=== PATIENT | female | born 1960 | race Caucasian/White ===

== ENCOUNTER → 2017-01-23 | Outpatient (CLI) | payer MEDICARE, MEDICAID ==
--- NOTE | 2017-01-23 13:50 | RADIOLOGY REPORT (SQ) ---
EXAM DESCRIPTION: MRI HEAD WITHOUT COMPLETED DATE/TIME: 01/23/2017 11:20 am REASON FOR STUDY: MIGRAINE G43.909 MIGRAINE, UNSP, NOT INTRACTABLE, WITHOUT STATUS MIGR COMPARISON: None. TECHNIQUE: Multiplanar imaging includes non-contrasted T1, T2, FLAIR, and diffusion with ADC map seq uences. Images stored on PACS. LIMITATIONS: None. FINDINGS: ANATOMY: No developmental anomalies. Normal vascular flow voids. Pituitary fossa normal. CSF SPACES: Normal in size and contour. No hemorrhage. CEREBRUM: Sulci and gyri normal in size and contour. Few punctate foci of increased white matter sig nal on FLAIR imaging, likely benign gliosis along perivascular spaces. . No evidence of hemorrhage, mass, or extraaxial fluid collection. POSTERIOR FOSSA: No signal alteration. No hemorrhage. No edema, masses or mass effect. Internal mikayla tory canals, cerebello-pontine angles, mastoids normal. DIFFUSION IMAGING: Negative for acute or sub-acute infarction. ORBITS: No masses. Globes normal. PARANASAL SINUSES: No fluid levels. Mucosa normal. OTHER: No other significant finding. IMPRESSION: ESSENTIALLY NORMAL MRI OF THE BRAIN WITHOUT INTRAVENOUS GADOLINIUM CONTRAST. EVIDENCE OF ACUTE STROKE: NO. TECHNICAL DOCUMENTATION: JOB ID: [id number] [employer]- All Rights Reserved
== END ==
LOC: RAD 10:39
PROVIDERS: ATTEND Family Medicine
DX: G43.909 Migraine, unspecified, not intractable, without status migrainosus (principal)
CPT/HCPCS: 70551

== ENCOUNTER 2017-02-14 14:03 | Emergency (ER) | payer MEDICARE, MEDICAID ==
--- NOTE | 2017-02-14 14:34 | ER Document Report ---
ED Medical Screen (RME) - General Chief Complaint: Headache >24 hrs old Stated Complaint: ABNORMAL LABS Time Seen by Provider: 02/14/17 14:29 Mode of Arrival: Ambulatory Information source: Patient Notes: pt sent in by Dr Fox for multiple tests imaging I have greeted and performed a rapid initial assessment of this patient. A comprehensive ED assessment and evaluation of the patient, analysis of test results and completion of the medical decision making process will be conducted by additional ED providers. PHYSICAL EXAMINATION: GENERAL: Well-appearing, well-nourished and in no acute distress. HEAD: Atraumatic, normocephalic. EYES: Pupils equal round extraocular movements intact, conjunctiva are normal. ENT: Nares patent NECK: Normal range of motion LUNGS: No respiratory distress Musculoskeletal: Normal range of motion NEUROLOGICAL: Normal speech, normal gait. PSYCH: Normal mood, normal affect. SKIN: Warm, Dry, normal turgor, no rashes or lesions noted. TRAVEL OUTSIDE OF THE [place] IN LAST 30 DAYS: No - Related Data Allergies/Adverse Reactions: Penicillins Allergy (Verified 02/14/17 14:14) Past Medical History Renal/ Medical History: Denies: Hx Peritoneal Dialysis Physical Exam - Vital signs Vitals: Temp Pulse Resp BP Pulse Ox 98.3 F 129 H 16 135/81 H 96 02/14/17 14:12 02/14/17 14:12 02/14/17 14:12 02/14/17 14:12 02/14/17 14:12 Course - Vital Signs Vital signs: Temp Pulse Resp BP Pulse Ox 98.3 F 129 H 16 135/81 H 96 02/14/17 14:12 02/14/17 14:12 02/14/17 14:12 02/14/17 14:12 02/14/17 14:12
[2017-02-14] MEDS ORDERED: DIPHENHYDRAMINE HCL 50 MG/ML VIAL IV ONE (14:40)
[2017-02-14] MEDS ORDERED: PROCHLORPERAZINE EDISYLATE INJ 10 MG/2 ML VIAL IV ONE (14:40)
--- NOTE | 2017-02-14 15:31 | RADIOLOGY REPORT (SQ) ---
EXAM DESCRIPTION: CT HEAD WITHOUT COMPLETED DATE/TIME: 02/14/2017 3:06 pm REASON FOR STUDY: headache COMPARISON: MR of the head 01/23/2017 TECHNIQUE: Axial images acquired through the brain without intravenous contrast. Images reviewed wi th bone, brain and subdural windows. Images stored on PACS. All CT scanners at this facility use dose modulation, iterative reconstruction, and/or weight based d osing when appropriate to reduce radiation dose to as low as reasonably achievable (ALARA). [facility]: Dose Right [facility]: CareDose [facility]: Dose Right [facility]: Teradose 4D [facility]: [employer] RADIATION DOSE: Up-to-date CT equipment and radiation dose reduction techniques were employed. CTDIv ol: 64.6 mGy. DLP: 1034 mGy-cm. mGy. LIMITATIONS: None. FINDINGS: VENTRICLES: Normal size and contour. CEREBRUM: No masses. No hemorrhage. No midline shift. No evidence for acute infarction. Normal gra y/white matter differentiation. No areas of low density in the white matter. CEREBELLUM: No masses. No hemorrhage. No alteration of density. No evidence for acute infarction. EXTRAAXIAL SPACES: No fluid collections. No masses. ORBITS AND GLOBE: No intra- or extraconal masses. Normal contour of globe without masses. CALVARIUM: No fracture. PARANASAL SINUSES: No fluid or mucosal thickening. SOFT TISSUES: No mass or hematoma. OTHER: No other significant finding. IMPRESSION: NORMAL BRAIN CT WITHOUT CONTRAST. EVIDENCE OF ACUTE STROKE: NO. COMMENT: Quality ID # [id number]: Final reports with documentation of one or more dose reduction techniques (e.g., Automated exposure control, adjustment of the mA and/or kV according to patient size, use of iterative reconstruction technique) TECHNICAL DOCUMENTATION: JOB ID: [id number] [employer]- All Rights Reserved
--- NOTE | 2017-02-14 15:40 | RADIOLOGY REPORT (SQ) ---
EXAM DESCRIPTION: CHEST PA/LAT COMPLETED DATE/TIME: 02/14/2017 3:16 pm REASON FOR STUDY: headache COMPARISON: 03/23/2009 EXAM PARAMETERS: NUMBER OF VIEWS: two views TECHNIQUE: Digital Frontal and Lateral radiographic views of the chest acquired. RADIATION DOSE: NA LIMITATIONS: Overlying breast tissue. FINDINGS: LUNGS AND PLEURA: No opacities, masses or pneumothorax. No pleural effusion. MEDIASTINUM AND HILAR STRUCTURES: No masses or contour abnormalities. HEART AND VASCULAR STRUCTURES: Heart normal size. No evidence for failure. BONES: No acute findings. HARDWARE: None in the chest. OTHER: No other significant finding. IMPRESSION: NO ACUTE RADIOGRAPHIC FINDING IN THE CHEST. TECHNICAL DOCUMENTATION: JOB ID: [id number] [employer]- All Rights Reserved
[2017-02-14 15:49] LABS: ABSOLUTE EOSINOPHILS # (AUTO) 0.1 10^3/uL (0.0-0.6); ABSOLUTE LYMPHOCYTES (AUTO) 2.9 10^3/uL (0.5-4.7); ABSOLUTE MONOCYTES (AUTO) 0.6 10^3/uL (0.1-1.4); ABSOLUTE NEUT (AUTO) 5.8 10^3/uL (1.7-8.2); BASOPHILS % (AUTO) 0.5 % (0-2); EOSINOPHILS % (AUTO) 1.3 % (0-6); HEMATOCRIT 39.8 % (36.0-47.0); HEMOGLOBIN 13.4 g/dL (12.0-15.5); HGB HCT DIFFERENCE 0.4; LYMPHOCYTES % (AUTO) 30.3 % (13-45); MEAN CORPUSCULAR HEMOGLOBIN 29.4 pg (27.0-33.4); MEAN CORPUSCULAR HGB CONC 33.8 g/dL (32.0-36.0); MEAN CORPUSCULAR VOLUME 87 fl (80-97); MONOCYTES % (AUTO) 6.4 % (3-13); RED BLOOD COUNT 4.58 10^6/uL (3.72-5.28); RED CELL DISTRIBUTION WIDTH 13.7 % (11.5-14.0); SEGMENTED NEUTROPHILS % (AUTO) 61.5 % (42-78); WHITE BLOOD COUNT 9.5 10^3/uL (4.0-10.5)
[2017-02-14] MEDS ORDERED: LIDOCAINE 1% INJ-PF (10 MG/ML) 30 ML SDV INJ ONE (15:57)
[2017-02-14 16:11] LABS: ALANINE AMINOTRANSFERASE 22 U/L (9-52); ALKALINE PHOSPHATASE 167 U/L (38-126); ANION GAP 19 (5-19); ASPARTATE AMINO TRANSFERASE 22 U/L (14-36); BILIRUBIN,DIRECT 0.1 mg/dL (0.0-0.4); BILIRUBIN,TOTAL 0.5 mg/dL (0.2-1.3); BLOOD UREA NITROGEN 15 mg/dL (7-20); CALCIUM 10.3 mg/dL (8.4-10.2); CARBON DIOXIDE 27 mmol/L (22-30); CHLORIDE 99 mmol/L (98-107); CREATININE RESULT 1.19 mg/dL (0.52-1.25); GLUCOSE 132 mg/dL (75-110); SODIUM 144.8 mmol/L (137-145); TOTAL PROTEIN 8.8 g/dL (6.3-8.2)
--- NOTE | 2017-02-14 16:23 | ER Document Report ---
ED General - General Mode of Arrival: Ambulatory Information source: Patient TRAVEL OUTSIDE OF THE [place] IN LAST 30 DAYS: No <FRIEDA JAIN - Last Filed: 02/14/17 18:18> <MAKENNA JACKSON - Last Filed: 02/14/17 18:56> - General Chief Complaint: Headache >24 hrs old Stated Complaint: ABNORMAL LABS Time Seen by Provider: 02/14/17 14:29 Notes: Patient is a 56 year old female that presents to the emergency department today after being seen by a retina specialist and was found to have papilledema. Dr. Fox (ophthalmology) called to inform ED staff of the patient and labs and procedures that he wanted done to rule out possible meningitis. Patient states her only symptom has been migraine headaches. Patient states she has a history of migraine headaches but they have been getting worse over the last month. Patient denies any focal neurological deficits. (FRIEDA JAIN) - Related Data Allergies/Adverse Reactions: Penicillins Allergy (Verified 02/14/17 14:14) Past Medical History - General Information source: Patient - Social History Smoking Status: Unknown if Ever Smoked Cigarette use (# per day): No Frequency of alcohol use: Rare Drug Abuse: None Lives with: Family Family History: Reviewed & Not Pertinent Patient has suicidal ideation: No Patient has homicidal ideation: No - Medical History Medical History: Negative Surgical Hx: Negative <FRIEDA JAIN - Last Filed: 02/14/17 18:18> Review of Systems - Review of Systems Constitutional: No symptoms reported EENT: No symptoms reported Cardiovascular: No symptoms reported Respiratory: No symptoms reported Gastrointestinal: No symptoms reported Genitourinary: No symptoms reported Female Genitourinary: No symptoms reported Musculoskeletal: No symptoms reported Skin: No symptoms reported Hematologic/Lymphatic: No symptoms reported Neurological/Psychological: See HPI, Headaches -: Yes All other systems reviewed and negative <FRIEDA JAIN - Last Filed: 02/14/17 18:18> Physical Exam <FRIEDA JAIN - Last Filed: 02/14/17 18:18> <MAKENNA JACKSON - Last Filed: 02/14/17 18:56> - Vital signs Vitals: Temp Pulse Resp BP Pulse Ox 98.3 F 129 H 16 135/81 H 96 02/14/17 14:12 02/14/17 14:12 02/14/17 14:12 02/14/17 14:12 02/14/17 14:12 - Notes Notes: PHYSICAL EXAM GENERAL: Alert, interacts well. No acute distress. HEAD: Normocephalic, atraumatic. EYES: Pupils equal, round, and reactive to light. Extraocular movements intact. ENT: Oral mucosa moist, tongue midline. NECK: Full range of motion. Supple. Trachea midline. LUNGS: Clear to auscultation bilaterally, no wheezes, rales, or rhonchi. No respiratory distress. HEART: Regular rate and rhythm. No murmurs, gallops, or rubs. ABDOMEN: Obese, soft, non-tender. Non-distended. Bowel sounds present in all 4 quadrants. EXTREMITIES: Moves all 4 extremities spontaneously. No cyanosis. NEUROLOGICAL: Alert and oriented x3. Normal speech. No focal neurological deficits. PSYCH: Normal affect, normal mood. SKIN: Warm, dry, normal turgor. No rashes or lesions noted. (FRIEDA JAIN) Course - Laboratory Result Diagrams: 02/14/17 15:30 02/14/17 15:30 <FRIEDA JAIN - Last Filed: 02/14/17 18:18> - Laboratory Result Diagrams: 02/14/17 15:30 02/14/17 15:30 <MAKENNA JACKSON - Last Filed: 02/14/17 18:56> - Re-evaluation Re-evalutation: 02/14/17 18:54 CBC unremarkable, CMP grossly unremarkable, no abnormalities that would affect today's diagnosis, lumbar puncture shows a traumatic tap with 682 RBCs in the first tube and down to 28 RBCs in the's fourth tube, no evidence of infection, 2 WBC in the first and 1 in the fourth tube. Slightly elevated glucose, normal protein, all of the other laboratory studies that were ordered were ordered on behalf of Dr. Fox and at his request, these will be followed up by him as an outpatient. Patient's headache was improved significantly by Toradol, Compazine , Benadryl. Patient will be given Decadron to help prevent rebound headache and will be discharged to home. Patient was given Ativan to help with her anxiety regarding the lumbar puncture. (MAKENNA JACKSON) - Vital Signs Vital signs: Temp Pulse Resp BP Pulse Ox 98.3 F 129 H 16 135/81 H 96 02/14/17 14:12 02/14/17 14:12 02/14/17 14:12 02/14/17 14:12 02/14/17 14:12 - Laboratory Laboratory results interpreted by me: 02/14/17 02/14/17 15:30 17:45 Est GFR ( Amer) 57 L Est GFR (Non-Af Amer) 47 L Glucose 132 H Calcium 10.3 H Alkaline Phosphatase 167 H Total Protein 8.8 H CSF Glucose 89 H Procedures - Lumbar Puncture Lumbar puncture Consent obtained: Yes Lumbar puncture pre-procedure: Sterile PPE donned, Betadine prep applied, Sterile drapes applied Patient position: Lying Needle size: 22 Lumbar puncture location: L3-L4 Anesthetic type: 1% Lidocaine mL's of anesthetic: 10 Amount/type of drainage: 6 mL clear Number of attempts: 1 Complications: No <MAKENNA JACKSON - Last Filed: 02/14/17 18:56> - Lumbar Puncture Lumbar puncture Notes: 02/14/17 18:54 Opening pressure 18. (MAKENNA JACKSON) Discharge <FRIEDA JAIN - Last Filed: 02/14/17 18:18> <MAKENNA JACKSON - Last Filed: 02/14/17 18:56> - Discharge Clinical Impression: Papilledema, Prehypertension Migraine Qualifiers: Migraine type: without aura Status migrainosus presence: with status migrainosus Intractability: intractable Qualified Code(s): G43.011 - Migraine without aura, intractable, with status migrainosus Condition: Stable Disposition: HOME, SELF-CARE Additional Instructions: Today your CAT scan did not show any signs of bleeding or mass. Your lumbar puncture did not show any increased intracranial pressure, bleeding or infection. We treated her headache with Toradol, Compazine and Benadryl. You have been given Decadron to help prevent a rebound headache. Please follow-up with Dr. Fox as an outpatient. He will need to contact to the hospital to get the rest of your blood work results. Scribe Attestation: 02/14/17 18:56 I personally performed the services described in the documentation, reviewed and edited the documentation which was dictated to the scribe in my presence, and it accurately records my words and actions. (KLOCEK,MAKENNA) Scribe Documentation - Scribe Written by Mau:: Mau Gutierrez, 02/14/2017 1833 acting as scribe for :: Saira <FRIEDA JAIN - Last Filed: 02/14/17 18:18>
[2017-02-14] MEDS ORDERED: LORAZEPAM INJ 2 MG/1 ML VIAL IV ONE (16:31)
[2017-02-14] MEDS ORDERED: KETOROLAC TROMETHAMINE INJ/PF 30 MG/1 ML SDV IV ONE (16:31)
[2017-02-14 18:33] LABS: APPEARANCE ALL TUBES CLEAR; APPEARANCE TUBE 1 CLEAR; APPEARANCE TUBE 2 CLEAR; APPEARANCE TUBE 3 CLEAR
[2017-02-14 18:35] LABS: RBC AVERAGE 136.5; RBC SIDE 1 135; RBC SIDE 2 138
[2017-02-14 18:36] LABS: RBC DILUENT USED NONE USED; RBC DILUTION FACTOR 1; TOTAL RBC SQUARES COUNTED 50; WHITE BLOOD CELL,CSF 2 /uL (0-5)
[2017-02-14 18:39] LABS: APPEARANCE ALL TUBES CLEAR; APPEARANCE TUBE 1 CLEAR; APPEARANCE TUBE 2 CLEAR; APPEARANCE TUBE 3 CLEAR
[2017-02-14 18:40] LABS: RBC DILUENT USED NONE USED; RBC DILUTION FACTOR 1; RBC SIDE 1 27; RBC SIDE 2 25; TOTAL RBC SQUARES COUNTED 225
[2017-02-14 18:41] LABS: WHITE BLOOD CELL,CSF 1 /uL (0-5)
[2017-02-14 18:42] LABS: GLUCOSE,CSF 89 mg/dL (40-70)
[2017-02-14] MEDS ORDERED: DEXAMETHASONE SOD PHOS INJ 10 MG/1 ML VIAL IV ONE (18:56)
[2017-02-14 19:38] VITALS: BP 112/67
[2017-02-17 10:56] LABS: TOXOPLASMA GONDII IGM AB <3.0 AU/mL (0.0-7.9)
[2017-02-17 13:38] LABS: JO-1 ANTIBODY (ANACOMP) <0.2 AI (0.0-0.9)
[2017-02-17 13:43] LABS: LYME DISEASE IGG AND IGM AB <0.91 ISR (0.00-0.90)
== END 2017-02-14 19:37 | disposition home or self-care (01) ==
LOC: ER 14:03
PROC: 00JU3ZZ Inspection of Spinal Canal, Percutaneous Approach (ICD-10-PCS; principal; 2017-02-14)
DX: G43.011 Migraine without aura, intractable, with status migrainosus (principal); H47.10 Unspecified papilledema; R03.0 Elevated blood-pressure reading, without diagnosis of hypertension
CPT/HCPCS: 99284; 96374; 96375; 86696; 86695 ×2; 87496; 36415; 87070; 87205; 82164; 86812; 86780; 85025; 89050; 82945; 84157; 86430; 86592; 80053; 86787; 86778; 83516 ×2; 86256 ×2; 86682; 86618 ×2; 86617 ×2; 86225; 86235 ×8; 71020; 70450; 62270; J1200; J1885; J2060; J0780; J1100; 86480

== ENCOUNTER 2017-06-11 13:22 | Emergency (ER) | payer MEDICARE, MEDICAID ==
--- NOTE | 2017-06-11 13:59 | ER Document Report ---
ED Medical Screen (RME) - General Chief Complaint: Fall Injury Stated Complaint: FALL/SHOULDER AND NECK PAIN Time Seen by Provider: 06/11/17 13:52 Mode of Arrival: Ambulatory Information source: Patient TRAVEL OUTSIDE OF THE [place] IN LAST 30 DAYS: No - HPI Patient complains to provider of: fall Onset: Yesterday - pt fell last night (has had recent neck surgery) and has pain in neck, L shoulder and hip. Denies LOC - Related Data Allergies/Adverse Reactions: Penicillins Allergy (Verified 06/11/17 13:22) Past Medical History - Social History Frequency of alcohol use: Rare Drug Abuse: None Renal/ Medical History: Denies: Hx Peritoneal Dialysis Physical Exam - Vital signs Vitals: Temp Pulse Resp BP Pulse Ox 98.4 F 125 H 20 109/54 L 99 06/11/17 13:30 06/11/17 13:30 06/11/17 13:30 06/11/17 13:30 06/11/17 13:30 Course - Vital Signs Vital signs: Temp Pulse Resp BP Pulse Ox 98.4 F 125 H 20 109/54 L 99 06/11/17 13:30 06/11/17 13:30 06/11/17 13:30 06/11/17 13:30 06/11/17 13:30
--- NOTE | 2017-06-11 14:43 | RADIOLOGY REPORT (SQ) ---
EXAM DESCRIPTION: CT CERVICAL SPINE WITHOUT COMPLETED DATE/TIME: 06/11/2017 2:31 pm REASON FOR STUDY: trauma COMPARISON: None. TECHNIQUE: Axial images acquired through the cervical spine without intravenous contrast. Images re viewed with lung, soft tissue and bone windows. Reconstructed coronal and sagittal MPR images review ed. Images stored on PACS. All CT scanners at this facility use dose modulation, iterative reconstruction, and/or weight based d osing when appropriate to reduce radiation dose to as low as reasonably achievable (ALARA). [facility]: Dose Right [facility]: CareDose [facility]: Dose Right [facility]: Teradose 4D [facility]: [employer] RADIATION DOSE: CT Rad equipment meets quality standard of care and radiation dose reduction techniq ues were employed. CTDIvol: 21.4 mGy. DLP: 441 mGy-cm. mGy. LIMITATIONS: Motion. Artifact from multilevel ACD. FINDINGS: ALIGNMENT: Anatomic. MINERALIZATION: Normal. VERTEBRAL BODIES: No fractures or dislocation. DISCS: See below. FACETS, LATERAL MASSES, POSTERIOR ELEMENTS: No fractures. No dislocation. No acute findings. HARDWARE: Status post ACD C3- 4, C4-5, C5-6 and C6-7. VISUALIZED RIBS: No fractures. LUNG APICES AND SOFT TISSUES: No significant or acute findings. OTHER: No other significant finding. IMPRESSION: Postsurgical changes. No acute findings. TECHNICAL DOCUMENTATION: JOB ID: [id number] Quality ID # [id number]: Final reports with documentation of one or more dose reduction techniques (e.g., Au tomated exposure control, adjustment of the mA and/or kV according to patient size, use of iterative reconstruction technique) 2010 [employer]- All Rights Reserved
--- NOTE | 2017-06-11 14:44 | RADIOLOGY REPORT (SQ) ---
EXAM DESCRIPTION: SHOULDER LEFT 2 OR MORE VIEWS COMPLETED DATE/TIME: 06/11/2017 2:29 pm REASON FOR STUDY: trauma COMPARISON: None. NUMBER OF VIEWS: Three views. TECHNIQUE: Internal rotation, external rotation, and Y view images acquired of the left shoulder. LIMITATIONS: None. FINDINGS: MINERALIZATION: Normal. BONES: No acute fracture or dislocation. No worrisome bone lesions. JOINTS: No dislocation. VISUALIZED LUNGS AND RIBS: No pneumothorax. No rib fracture. SOFT TISSUES: No radiopaque foreign body. OTHER: No other significant finding. IMPRESSION: NEGATIVE STUDY OF THE LEFT SHOULDER. NO RADIOGRAPHIC EVIDENCE OF ACUTE INJURY. TECHNICAL DOCUMENTATION: JOB ID: [id number] [employer]- All Rights Reserved
--- NOTE | 2017-06-11 14:51 | RADIOLOGY REPORT (SQ) ---
EXAM DESCRIPTION: HIP LEFT AP/LATERAL COMPLETED DATE/TIME: 06/11/2017 2:29 pm REASON FOR STUDY: trauma COMPARISON: None. NUMBER OF VIEWS: Two views. TECHNIQUE: AP pelvis and additional frog-leg view of the left hip. LIMITATIONS: Large patient FINDINGS: MINERALIZATION: Normal. LEFT HIP: No fracture or dislocation. No worrisome bone lesions. No significant joint space narrowi ng. Minimal acetabular rim bony spurring. RIGHT HIP: No fracture or dislocation. No worrisome bone lesions. No significant joint space narrow ing or acetabular rim bony spurring. PUBIS AND ISCHIUM: No fracture. PELVIS: No fracture. SACRUM: No fracture or dislocation. No worrisome bone lesions. LOWER LUMBAR SPINE: Lower lumbar bilateral facet arthropathy at L4-5 and L5-S1 SOFT TISSUES: No findings. OTHER: No other significant finding. IMPRESSION: No acute fracture TECHNICAL DOCUMENTATION: JOB ID: [id number] [employer]- All Rights Reserved
--- NOTE | 2017-06-11 15:22 | ER Document Report ---
ED Fall - General Mode of Arrival: Ambulatory Information source: Patient TRAVEL OUTSIDE OF THE [place] IN LAST 30 DAYS: No - General Chief Complaint: Fall Injury Stated Complaint: FALL/SHOULDER AND NECK PAIN Time Seen by Provider: 06/11/17 13:52 Notes: Patient is a 56 year old female that presents to the emergency department today with complaints of a fall that occurred yesterday. Patient states she fell down approximately 12 steps. Patient states she is unsure if she hit her head. Patient did have recent neck surgery on 05/28/2017. Patient complains of neck pain and left shoulder pain. Patient denies vision changes, nausea, vomiting, or usage of blood thinners. (FRIEDA JAIN) - Related data Allergies/Adverse Reactions: Penicillins Allergy (Verified 06/11/17 13:22) Past Medical History - General Information source: Patient - Social History Smoking Status: Unknown if Ever Smoked Frequency of alcohol use: Rare Drug Abuse: None Lives with: Family Family History: Reviewed & Not Pertinent Patient has suicidal ideation: No Patient has homicidal ideation: No - Past Medical History Cardiac Medical History: Reports: Hx Hypertension Pulmonary Medical History: Reports: Hx Asthma GI Medical History: Reports: Hx Gastroesophageal Reflux Disease Past Surgical History: Reports: Hx Section, Hx Orthopedic Surgery - neck Review of Systems - Review of Systems Constitutional: No symptoms reported EENT: denies: Blurred vision, Double vision Cardiovascular: No symptoms reported Respiratory: No symptoms reported Gastrointestinal: denies: Nausea, Vomiting Genitourinary: No symptoms reported Female Genitourinary: No symptoms reported Musculoskeletal: See HPI, Joint pain - left shoulder, Neck pain Skin: No symptoms reported Hematologic/Lymphatic: No symptoms reported Neurological/Psychological: No symptoms reported -: Yes All other systems reviewed and negative Physical Exam - Vital signs Vitals: Temp Pulse Resp BP Pulse Ox 98.4 F 125 H 20 109/54 L 99 06/11/17 13:30 06/11/17 13:30 06/11/17 13:30 06/11/17 13:30 06/11/17 13:30 - Notes Notes: Physical Exam: General: Alert, appears well. HEENT: Normocephalic. Atraumatic. PERRL. Extraocular movements intact. Oropharynx clear. Neck: Soft collar in place, cervical spine tenderness with palpation, no step- off or deformities. Respiratory: No respiratory distress. Clear and equal breath sounds bilaterally. Cardiovascular: Regular rate and rhythm. Abdominal: Normal Inspection. Non-tender. No distension. Normal Bowel Sounds. Back: Non-tender. No deformity or step off. Extremities: Moves all four extremities. Upper extremities: Unable to raise bilateral upper extremities above shoulder level secondary to pain. Lower extremities: Normal inspection. No edema. Normal ROM. Neurological: Normal cognition. AAOx4. Normal speech. Psychological: Normal affect. Normal Mood. Skin: Warm. Dry. Normal color. (FRIEDA JAIN) Course - Re-evaluation Re-evalutation: 06/11/17 15:22 Imaging shows no acute abnormalities patient well-appearing with steady gait with no bruising on her body. She is requesting narcotics. Reviewing charts she was provided a narcotic pills just on 06 June. I explained that I cannot prescribe her any more narcotic medications and she had a follow-up with her primary care physician. I did discuss that her imaging was negative for any fractures or dislocations. (AVIS LARSEN) - Vital Signs Vital signs: Temp Pulse Resp BP Pulse Ox 99.0 F 103 H 18 104/74 98 06/11/17 15:28 06/11/17 15:28 06/11/17 15:28 06/11/17 15:28 06/11/17 15:28 Discharge - Discharge Clinical Impression: Fall (on) (from) other stairs and steps, initial encounter Condition: Good Disposition: HOME, SELF-CARE Instructions: Muscle Strain ([facility]) Additional Instructions: Please follow-up with your primary care physician regarding her pain medications. Prescriptions: Naproxen 500 mg PO BID #30 tablet Referrals: HALEY TEJADA MD [Primary Care Provider] - Follow up as needed Scribe Documentation - Scribe Written by Scribe:: Mau Gutierrez, 06/11/2017 1630 acting as scribe for :: Jamie
[2017-06-11 15:35] VITALS: BP 104/74
== END 2017-06-11 15:32 | disposition home or self-care (01) ==
LOC: ER 13:22
DX: M54.2 Cervicalgia (principal); M25.512 Pain in left shoulder; W10.9XXA Fall (on) (from) unspecified stairs and steps, initial encounter; I10 Essential (primary) hypertension; J45.909 Unspecified asthma, uncomplicated; Z98.890 Other specified postprocedural states; Z88.0 Allergy status to penicillin
CPT/HCPCS: 72125; 99284

== ENCOUNTER 2017-07-30 08:40 | Emergency (ER) | payer MEDICARE, MEDICAID ==
[2017-07-30] MEDS ORDERED: NORMAL SALINE 1000 ML 1,000 ML IV ONE (08:54)
[2017-07-30] MEDS ORDERED: DIPHENHYDRAMINE HCL 50 MG/ML VIAL IV ONE (08:54)
[2017-07-30] MEDS ORDERED: KETOROLAC TROMETHAMINE INJ/PF 30 MG/1 ML SDV IV ONE (08:54)
[2017-07-30] MEDS ORDERED: PROCHLORPERAZINE EDISYLATE INJ 10 MG/2 ML VIAL IV ONE (08:54)
--- NOTE | 2017-07-30 08:54 | ER Document Report ---
ED Headache - General Chief Complaint: Headache Stated Complaint: HEADACHE Time Seen by Provider: 07/30/17 08:54 Mode of Arrival: Ambulatory Information source: Patient Notes: 57 yo female with forehead and back or skull headache(origin) for 8 days, started 07/14, now 4.5. Sent by dr. Shepard, he gave injection which helped some Friday. Hx migraines in same location just lasting longer. Thinks maybe it is from neck. Cervical spine surgery 05/2017- C3-8, 4 formerly [facility] [place] [place] Pain management 10mg percocet qid. No fever. TRAVEL OUTSIDE OF THE [place] IN LAST 30 DAYS: No - Related Data Allergies/Adverse Reactions: Penicillins Allergy (Verified 06/11/17 13:22) Past Medical History - General Information source: Patient - Social History Smoking Status: Never Smoker Frequency of alcohol use: None Drug Abuse: None Lives with: Spouse/Significant other Family History: Reviewed & Not Pertinent - Past Medical History Cardiac Medical History: Reports: Hx Hypertension Pulmonary Medical History: Reports: Hx Asthma Renal/ Medical History: Denies: Hx Peritoneal Dialysis GI Medical History: Reports: Hx Gastroesophageal Reflux Disease Past Surgical History: Reports: Hx Section, Hx Orthopedic Surgery - cervical spine, Hx Tonsillectomy Review of Systems - Review of Systems Constitutional: No symptoms reported EENT: No symptoms reported Cardiovascular: No symptoms reported Respiratory: No symptoms reported Gastrointestinal: No symptoms reported Genitourinary: No symptoms reported Female Genitourinary: No symptoms reported Musculoskeletal: No symptoms reported Skin: No symptoms reported Hematologic/Lymphatic: No symptoms reported Neurological/Psychological: See HPI Physical Exam - Vital signs Vitals: Temp Pulse Resp BP Pulse Ox 97.9 F 124 H 16 131/89 H 100 07/30/17 08:43 07/30/17 08:43 07/30/17 08:43 07/30/17 08:43 07/30/17 08:43 Interpretation: Normal - General General appearance: Appears well, Alert, Anxious - HEENT Head: Normocephalic, Atraumatic Eyes: Normal Pupils: PERRL - Respiratory Respiratory status: No respiratory distress Chest status: Nontender Breath sounds: Normal Chest palpation: Normal - Cardiovascular Rhythm: Regular Heart sounds: Normal auscultation Murmur: No - Abdominal Inspection: Normal Distension: No distension Bowel sounds: Normal Tenderness: Nontender Organomegaly: No organomegaly - Back Back: Normal, Nontender - Extremities General upper extremity: Normal inspection, Nontender, Normal color, Normal ROM , Normal temperature General lower extremity: Normal inspection, Nontender, Normal color, Normal ROM , Normal temperature, Normal weight bearing. No: Rose's sign - Neurological Neuro grossly intact: Yes Cognition: Normal Orientation: AAOx4 [place] Coma Scale Eye Opening: Spontaneous [place] Coma Scale Verbal: Oriented [place] Coma Scale Motor: Obeys Commands [place]iel Coma Scale Total: 15 Speech: Normal Motor strength normal: LUE, RUE, LLE, RLE Sensory: Normal - Psychological Associated symptoms: Normal affect, Normal mood - Skin Skin Temperature: Warm Skin Moisture: Dry Skin Color: Normal Course - Re-evaluation Re-evalutation: 07/30/17 10:32 Headache is down to 2.5/5 and she feels like she can go home she feels a lot better. - Vital Signs Vital signs: Temp Pulse Resp BP Pulse Ox 97.3 F 108 H 20 133/59 H 97 07/30/17 10:33 07/30/17 10:33 07/30/17 10:33 07/30/17 10:33 07/30/17 10:33 Discharge - Discharge Clinical Impression: Headache Qualifiers: Headache type: unspecified Headache chronicity pattern: episodic headache Intractability: not intractable Qualified Code(s): R51 - Headache Condition: Good Disposition: HOME, SELF-CARE Instructions: Intravenous Compazine for Headaches ([facility]), Use of Diphenhydramine , Headache ([facility]), Toradol Injection ([facility]) Additional Instructions: see dr shepard for follow-up return to the emergency room if symptoms worsen see neurologist for headaches Referrals: GARLAND SHEPRAD MD [Primary Care Provider] - Follow up as needed FRANTZ REYES MD [NO LOCAL MD] - Follow up as needed
[2017-07-30 10:44] VITALS: BP 133/59
== END 2017-07-30 10:51 | disposition home or self-care (01) ==
LOC: ER 08:40
DX: R51 Headache (principal); I10 Essential (primary) hypertension; J45.909 Unspecified asthma, uncomplicated; Z87.891 Personal history of nicotine dependence; Z98.890 Other specified postprocedural states; Z88.0 Allergy status to penicillin
CPT/HCPCS: 99283; 96361; 96374; 96375; J1200; J1885; J0780; J7030